=== PATIENT | female | born 1960 | race Two or more races ===

== ENCOUNTER → 2024-11-01 | Outpatient (CLI) | payer MEDICARE, SELFPAY ==
--- NOTE | 2024-11-01 09:15 | XR_ITS ---
Examination: Screening digital mammography, bilateral Computer aided detection 3-D breast Tomosynthesis, bilateral Date and time of exam: November 01, 2024 0900 hours Compared to mammograms dating to September 08, 2016 Indication: Screening Technique: Nonmagnified MLO, CC views of the breasts to been obtained, reconstructed from 3-D Tomosynthesis images. R2 computer aided detection program utilized for evaluation of suspicious masses and/or abnormal calcifications. 3-D Tomosynthesis images obtained. Findings: Scattered areas of fibroglandular density 6 mm focal asymmetry outer right breast CC view, posterior depth Benign calcifications Impression: BI-RADS Category 0: Incomplete: Need additional imaging evaluation 6 mm focal asymmetry outer right breast CC view, posterior depth Recommend follow-up spot tomographic views upper outer quadrant right breast posterior depth, right breast sonography to complete the workup
== END | disposition home or self-care (01) ==
LOC: CDIM 08:52
PROVIDERS: Referring Provider Physician Assistant; Visit Provider Physician Assistant
DX: Z12.31 Encounter for screening mammogram for malignant neoplasm of breast (principal); N64.89 Other specified disorders of breast
CPT/HCPCS: 77063; 77067

== ENCOUNTER → 2025-01-10 | Outpatient (CLI) | payer MEDICARE, SELFPAY ==
--- NOTE | 2025-01-10 10:30 | XR_ITS ---
Examination: Breast ultrasound, unilateral, right complete Date and time of exam: January 10, 2025 1105 hours INDICATIONS: Mammogram November 01, 2024 6 mm focal asymmetry outer right breast Technique: Real-time devries scale ultrasonographic imaging performed right breast including all 4 quadrants as well as nipple retroareolar and axillary region. Findings: No cystic or solid mass IMPRESSION: BI-RADS Category 2: Benign findings
--- NOTE | 2025-01-10 11:00 | XR_ITS ---
Examination: Diagnostic digital mammography, unilateral, right Computer aided detection 3-D breast Tomosynthesis, unilateral Date and time of exam: January 18, 2025 1118 hours INDICATIONS: Mammogram November 01, 2024 6 mm focal asymmetry outer right breast posterior depth Technique: Nonmagnified MLO, CC views of the left breast have been obtained, reconstructed from 3-D Tomosynthesis images. R2 computer aided detection program utilized for evaluation of suspicious masses and/or abnormal calcifications. 3-D Tomosynthesis images obtained. Findings: Scattered areas of fibroglandular density. Benign calcifications. No suspicious masses Impression: BI-RADS category 2: Benign findings Return to yearly follow-up mammography
== END | disposition home or self-care (01) ==
LOC: CDIM 10:27
PROVIDERS: PCP Physician Assistant; Referring Provider Nurse Practitioner Primary Care; Visit Provider Nurse Practitioner Primary Care
DX: R92.321 Mammographic fibroglandular density, right breast (principal); R92.1 Mammographic calcification found on diagnostic imaging of breast; N64.89 Other specified disorders of breast
CPT/HCPCS: 76641; 77061; 77065; G0279

== ENCOUNTER 2025-05-14 10:30 | Day surgery (SDC) | payer MEDICARE, SELFPAY ==
[2025-05-14] VITALS (10 sets, daily range): BP systolic 97–152; BP diastolic 57–100; PULSE 58–72; RESP 10–19; TEMP 36.6–36.8; O2SAT 96–100; BMI 32.9
[2025-05-14] MEDS: DiphenhydrAMINE INJ 50 MG/ML VIAL 25 MG IVP (11:57)
[2025-05-14] MEDS: SODIUM CHLORIDE 0.9% 500 ML 500 ML 20 ML IV (11:57)
[2025-05-14] MEDS: MIDAZOLAM INJ 1 MG/ML VIAL 2 ML (ASD USE ONLY) 2 MG IVP (12:03)
[2025-05-14] MEDS: fentaNYL CIT INJ 50 mCg/ML AMP 2ML (ASD USE ONLY) IVP (12:03)
--- NOTE | 2025-05-14 14:38 | SUR.PHASEII ---
1221: Pt received for recovery. Report from Maricarmen MACHADO. Pt sleepy. Is arousable then drifts back to sleep. Resp even, unlabored. VS stable. No c/o pain. 1300: Pt more awake, alert. VS stable. Denies pain. Sitting up tolerating po fluids with no difficulty swallowing and no n/v. 1323: Pt fully awake, oriented x3. Pt assisted to restroom. Ambulation steady. Pt and stated understanding of discharge instructions via event specialist. Pt discharged from [facility] in stable condition.
== END 2025-05-14 13:23 | disposition home or self-care (01) ==
PROVIDERS: PCP Physician Assistant; Referring Provider Specialist; Visit Provider Specialist
PROC: 0DBE8ZX Excision of Large Intestine, Via Natural or Artificial Opening Endoscopic, Diagnostic (ICD-10-PCS; CPT 45380; principal; 2025-05-14 11:45)
DX: D12.2 Benign neoplasm of ascending colon (principal); D12.3 Benign neoplasm of transverse colon; D12.8 Benign neoplasm of rectum; K64.9 Unspecified hemorrhoids; K57.31 Diverticulosis of large intestine without perforation or abscess with bleeding
CPT/HCPCS: 45380; 45385; J1200; J2250; J3010; J7040